=== PATIENT | female | born 2000 | race Two or more races ===

== ENCOUNTER 2023-03-23 12:43 | Outpatient (CLI) | payer OTHER | END 2023-03-23 14:15 | disposition home or self-care (01) | LOC: PRENATAL 12:43 | PROVIDERS: ATTEND Obstetrics & Gynecology Maternal & Fetal Medicine | DX: O36.80X0 Pregnancy with inconclusive fetal viability, not applicable or unspecified (principal); Z3A.13 13 weeks gestation of pregnancy ==

== ENCOUNTER 2023-05-08 12:26 | Outpatient (CLI) | payer OTHER | END 2023-05-08 14:25 | disposition home or self-care (01) | LOC: PRENATAL 12:26 | PROVIDERS: ATTEND Obstetrics & Gynecology Maternal & Fetal Medicine | DX: O35.9XX0 Maternal care for (suspected) fetal abnormality and damage, unspecified, not applicable or unspecified (principal); O35.3XX0 Maternal care for (suspected) damage to fetus from viral disease in mother, not applicable or unspecified; Z3A.20 20 weeks gestation of pregnancy ==

== ENCOUNTER 2023-08-06 12:59 | Outpatient (CLI) | payer OTHER | END 2023-08-06 13:39 | disposition home or self-care (01) | LOC: PRENATAL 12:59 | PROVIDERS: ATTEND Obstetrics & Gynecology Maternal & Fetal Medicine | DX: O26.849 Uterine size-date discrepancy, unspecified trimester (principal); O36.8199 Decreased fetal movements, unspecified trimester, other fetus; Z3A.32 32 weeks gestation of pregnancy ==

== ENCOUNTER 2023-08-18 08:23 | Outpatient (CLI) | payer OTHER | END 2023-08-18 08:35 | disposition home or self-care (01) | LOC: RAD 08:23 | PROVIDERS: ATTEND Obstetrics & Gynecology | DX: S93.401A Sprain of unspecified ligament of right ankle, initial encounter (principal) ==

== ENCOUNTER 2023-09-11 13:15 | Inpatient (IN) | payer OTHER ==
[~2023-09-11] VITALS: Ht 167.6 cm; Wt 92.5 kg
[2023-09-17 10:57] LABS: HEMATOCRIT 35.2 % (36.0-45.00); HEMOGLOBIN 11.2 g/dL (12.0-15.00); MEAN CELL VOLUME 78.6 fL (80.00-100.00); MEAN CORPUSCULAR HGB CONC 31.8 g/dl (32.0-36.0); PLATELET COUNT 163 K/uL (150-450); RED BLOOD COUNT 4.48 M/uL (4.00-6.00); RED CELL DISTRIBUTION WIDTH 14.4 % (11.5-14.5)
[2023-09-17 11:00] LABS: URINE APPEARANCE Clear; URINE BILIRRUBIN Negative (NEGATIVE); URINE BLOOD Negative; URINE COLOR Yellow; URINE GLUCOSE Negative (NEGATIVE); URINE LEUKOCYTE Trace; URINE NITRATE Negative; URINE PROTEIN Negative (NEGATIVE)
[2023-09-17 11:05] LABS: URINE BACTERIA 239.3 uL (0.0-1933); URINE EPITHELIAL CELLS 12.8 uL (0.0-38.8); URINE RBC 25.1 uL (0.0-20.8); URINE WBC 11.2 uL (0.0-23.2)
[2023-09-17 11:22] LABS: INR 0.98; PARTIAL THROMBOPLASTIN TIME 23.4 SECONDS (22.0-34.0); PROTHROMBIN TIME 10.3 SECONDS (9.0-11.5)
[2023-09-17 17:14] LABS: ABG PH 7.283 (7.35-7.45); ABG pCO2 43.9 mmHg (35-45); BASE EXCESS -6.2 mmol/l; BICARBONATE 20.3 mmol/l (23-25); Tco2 21.7 mmol/l
[2023-09-17 17:35] LABS: ABG PO2 20.9 mmHg (80-100)
[2023-09-17 17:36] LABS: o2 21 %
[2023-09-17 20:50] LABS: HEMATOCRIT 31.4 % (36.0-45.00); MEAN CELL VOLUME 77.9 fL (80.00-100.00); MEAN CORPUSCULAR HEMOGLOBIN 24.8 pg (27.00-32.0); MEAN CORPUSCULAR HGB CONC 31.9 g/dl (32.0-36.0); PLATELET COUNT 149 K/uL (150-450); RED BLOOD COUNT 4.03 M/uL (4.00-6.00); RED CELL DISTRIBUTION WIDTH 14.4 % (11.5-14.5)
== END 2023-09-19 15:05 | disposition home or self-care (01) | DRG 807 ==
LOC: LDR 09-17 09:44 → OB/GYN 09-17 15:32 → LDR 09-25 13:15
PROVIDERS: ADMIT Obstetrics & Gynecology; ATTEND Obstetrics & Gynecology
PROC: 10E0XZZ Delivery of Products of Conception, External Approach (ICD-10-PCS; principal; 2023-09-17)
PROC: 0UQG7ZZ Repair Vagina, Via Natural or Artificial Opening (ICD-10-PCS; 2023-09-17)
PROC: 4A1HXCZ Monitoring of Products of Conception, Cardiac Rate, External Approach (ICD-10-PCS; 2023-09-17)
DX: O71.4 Obstetric high vaginal laceration alone (principal); Z37.0 Single live birth; Z3A.38 38 weeks gestation of pregnancy; Z20.822 Contact with and (suspected) exposure to COVID-19

== ENCOUNTER → 2024-07-10 10:16 | Outpatient (CLI) | payer OTHER | END | disposition home or self-care (01) | LOC: PRENATAL 10:16 | PROVIDERS: ATTEND Obstetrics & Gynecology Maternal & Fetal Medicine | DX: O36.80X0 Pregnancy with inconclusive fetal viability, not applicable or unspecified (principal); Z36.82 Encounter for antenatal screening for nuchal translucency; Z3A.12 12 weeks gestation of pregnancy ==

== ENCOUNTER → 2024-09-02 13:57 | Outpatient (CLI) | payer OTHER | END | disposition home or self-care (01) | LOC: PRENATAL 13:57 | PROVIDERS: ATTEND Obstetrics & Gynecology Maternal & Fetal Medicine | DX: O35.3XX0 Maternal care for (suspected) damage to fetus from viral disease in mother, not applicable or unspecified (principal); O44.00 Complete placenta previa NOS or without hemorrhage, unspecified trimester; Z3A.20 20 weeks gestation of pregnancy ==

== ENCOUNTER 2024-11-24 13:26 | Outpatient (CLI) | payer OTHER | END 2024-11-24 16:00 | disposition home or self-care (01) | LOC: PRENATAL 13:26 | PROVIDERS: ATTEND Obstetrics & Gynecology Maternal & Fetal Medicine | DX: O26.849 Uterine size-date discrepancy, unspecified trimester (principal); O36.8199 Decreased fetal movements, unspecified trimester, other fetus; O99.019 Anemia complicating pregnancy, unspecified trimester; Z3A.32 32 weeks gestation of pregnancy ==

== ENCOUNTER 2025-01-09 13:30 | Inpatient (IN) | payer OTHER ==
[~2025-01-09] VITALS: Ht 167.6 cm; Wt 97.1 kg
[2025-01-12] VITALS (8 sets, daily range): BP systolic 107–132; BP diastolic 59–93
[2025-01-12] MEDS ORDERED: CHLORHEXIDINE GLUCONATE 120 ML BOTTLE TOP ONE (13:56)
[2025-01-12] MEDS ORDERED: LIDOCAINE HCL 1% 10ML VIAL ONE (13:56)
[2025-01-12] MEDS ORDERED: ERYTHROMYCIN BASE OPHT 1GM EACH TUBE OP ONE (13:56)
[2025-01-12] MEDS ORDERED: OXYTOCIN 20 UNITS/1000ML RL PIGGYBAG IV ONE (13:56)
[2025-01-12] MEDS ORDERED: OXYTOCIN 10 UNITS/ML VIAL ONE (14:00)
[2025-01-12] MEDS ORDERED: PRENATAL TABLE1 EAC1 PO (14:11)
[2025-01-12 14:34] LABS: HEMATOCRIT 39.1 % (36.0-45.00); HEMOGLOBIN 12.5 g/dL (12.0-15.00); MEAN CELL VOLUME 76.7 fL (80.00-100.00); MEAN CORPUSCULAR HEMOGLOBIN 24.4 pg (27.00-32.0); MEAN CORPUSCULAR HGB CONC 31.9 g/dl (32.0-36.0); PLATELET COUNT 154 K/uL (150-450); RED CELL DISTRIBUTION WIDTH 15.7 % (11.5-14.5)
[2025-01-12 14:39] LABS: PH,URINE 6.5 (5.0-8.0); URINE APPEARANCE Clear; URINE BILIRRUBIN Negative (NEGATIVE); URINE BLOOD Negative; URINE COLOR Yellow; URINE GLUCOSE Negative (NEGATIVE); URINE LEUKOCYTE Negative; URINE NITRATE Negative; URINE PROTEIN Negative (NEGATIVE); URINE UROBILINOGEN 0.2 E.U./dl
[2025-01-12 14:42] LABS: URINE BACTERIA 1474.8 uL (0.0-1933); URINE EPITHELIAL CELLS 56.9 uL (0.0-38.8); URINE RBC 10.1 uL (0.0-20.8); URINE WBC 40.6 uL (0.0-23.2)
[2025-01-12 15:03] LABS: URINE KETONE 40 (NEGATIVE)
[2025-01-12 15:15] LABS: INR 0.98; PARTIAL THROMBOPLASTIN TIME 23.7 SECONDS (22.0-34.0); PROTHROMBIN TIME 10.7 SECONDS (9.0-11.5)
[2025-01-12] MEDS ORDERED: OXYTOCIN 1,000 ML IV SCH (15:15)
[2025-01-12] MEDS ORDERED: ACETAMINOPHEN 500 MG GEL..CAP PO PRN (15:15)
[2025-01-12 15:21] LABS: ALBUMIN 3.4 gm/dL (3.4-5.0); BILIRUBIN TOTAL 0.91 mg/dL (0.3-1.2); CALCIUM 9.7 mg/dL (8.5-10.1); CREATININE SERUM 0.61 mg/dL (0.55-1.02); GFR 121.54; GLOBULINA 3.9 G/DL (2.4-3.5); POTASSIUM 4.08 mEq/L (3.5-5.1); TOTAL PROTEIN 7.3 gm/dL (6.4-8.2)
[2025-01-12] MEDS ORDERED: IBUprofen 400 MG TABLET PO PRN (15:45)
[2025-01-12 18:50] LABS: HEMATOCRIT 34.7 % (36.0-45.00); HEMOGLOBIN 11.5 g/dL (12.0-15.00); MEAN CELL VOLUME 76.1 fL (80.00-100.00); MEAN CORPUSCULAR HEMOGLOBIN 25.1 pg (27.00-32.0); PLATELET COUNT 138 K/uL (150-450); RED BLOOD COUNT 4.57 M/uL (4.00-6.00); RED CELL DISTRIBUTION WIDTH 15.6 % (11.5-14.5)
[2025-01-13 08:00] VITALS: BP 110/71
[2025-01-13] MEDS ORDERED: PNV,CALCIUM 72/IRON/FOLIC ACID 1 TAB TABLET PO SCH (09:00)
[2025-01-13 16:43] VITALS: BP 113/73
[2025-01-13 21:05] VITALS: BP 116/77
[2025-01-13 23:42] VITALS: BP 110/64
[2025-01-14 08:00] VITALS: BP 107/71
== END 2025-01-14 10:56 | disposition home or self-care (01) | DRG 807 ==
LOC: LDR 01-12 13:50 → OB/GYN 01-12 13:50 → LDR 01-17 13:30
PROVIDERS: Obstetrics & Gynecology; ADMIT Obstetrics & Gynecology; ATTEND Obstetrics & Gynecology
PROC: 10E0XZZ Delivery of Products of Conception, External Approach (ICD-10-PCS; principal; 2025-01-12)
PROC: 4A1HXCZ Monitoring of Products of Conception, Cardiac Rate, External Approach (ICD-10-PCS; 2025-01-12)
DX: O80 Encounter for full-term uncomplicated delivery (principal); Z37.0 Single live birth; Z3A.39 39 weeks gestation of pregnancy

== ENCOUNTER 2025-06-06 16:08 | Emergency (ER) | payer OTHER ==
[~2025-06-06] VITALS: Ht 167.6 cm; Wt 76.2 kg
[~2025-06-06 16:08] MED LIST: PRENATAL TABLE1 EAC1 PO
[2025-06-06 19:08] LABS: BASO % 1.3 % (0.1-1.2); EOS # 0.16 (0.04-0.54); EOS % 3.4 % (0.7-7.0); LYMPH # 0.74 (1.18-3.74); LYMPH % 15.6 % (19.3-53.1); MEAN PLATELET VOLUME 11.40 fl (9.4-12.4); MONO # 0.46 (0.24-0.82); MONO % 9.7 % (4.7-12.5); NEUT # 3.30 (1.56-6.13); NEUT % 69.8 % (34.0-71.1); RED CELL DISTRIBUTION WIDTH 14.7 % (11.6-14.4)
[2025-06-06 20:00] LABS: COVID-19 AG POSITIVE (NEGATIVE)
[2025-06-06] MEDS ORDERED: PAXLOVID 300-11 EAC1 PO (20:57)
[2025-06-06] MEDS ORDERED: GILTUSS COUGH-118 M1 PO (20:57)
== END 2025-06-06 21:08 | disposition home or self-care (01) ==
LOC: ER 16:08
PROVIDERS: Preventive Medicine Public Health & General Preventive Medicine
DX: U07.1 COVID-19 (principal); Z88.6 Allergy status to analgesic agent